=== PATIENT | female | born 1990 | race Caucasian/White ===

== ENCOUNTER 2018-04-06 07:33 | Inpatient (IN) | payer BC ==
[2018-04-06] MEDS ORDERED: IBUPROFEN 600 MG TAB PO (08:00)
[2018-04-06] MEDS ORDERED: LIDOCAINE 1% (MPF) 30 ML INJ INJ (08:00)
[2018-04-06] MEDS ORDERED: CARBOPROST 250 MCG INJ IM ×2 (08:00→21:00)
[2018-04-06] MEDS ORDERED: OXYTOCIN 30 UNITS/LR 500 ML IV ×4 (08:00→21:00)
[2018-04-06] MEDS ORDERED: MISOPROSTOL 200 MCG TAB PR ×2 (08:00→21:00)
[2018-04-06] MEDS ORDERED: BUTORPHANOL 2 MG INJ IV (08:00)
[2018-04-06] MEDS: LACTATED RINGER'S 1,000 ML IV ×3 (08:08→15:14)
[2018-04-06 09:17] LABS: ADD MAN DIFF? NO
[2018-04-06 09:21] LABS: BASOPHILS % 0.2 % (0.0-2.0); EOSINOPHILS # 0.1 10^3/ul (0.0-0.5); HEMATOCRIT 40.6 % (37.0-47.0); HEMOGLOBIN 13.4 g/dl (12.0-16.0); LYMPHOCYTES # 2.2 10^3/ul (0.8-2.9); LYMPHOCYTES % 25.1 % (15.0-51.0); MEAN CORPUSCULAR HEMOGLOBIN 30.1 pg (29.0-33.0); MEAN CORPUSCULAR VOLUME 91.2 fl (82.0-101.0); MEAN PLATELET VOLUME 11.5 fl (7.4-10.4); MONOCYTE # 0.5 10^3/ul (0.3-0.9); MONOCYTES % 5.8 % (0.0-11.0); NEUTROPHILS % 67.2 % (39.0-77.0); PLATELET COUNT 247 10^3/UL (140-415); RED BLOOD COUNT 4.45 10^6/ul (4.20-5.40); RED CELL DISTRIBUTION WIDTH 13.7 % (11.5-14.5)
[2018-04-06 09:21] LABS: WHITE BLOOD COUNT 8.9 10^3/ul (4.8-10.8)
[2018-04-06 09:40] LABS: INR 0.86; PROTIME 11.8 Sec (11.9-14.9); PT RATIO 0.9
[2018-04-06] MEDS: OXYTOCIN 30 UNITS/LR 500 ML IV ×2 (09:41→22:00)
[2018-04-06] MEDS ORDERED: FENTAnyl 2MCG/ML-ROPIV 0.2% 100 ML (10:48)
[2018-04-06] MEDS ORDERED: NALOXONE (0.4 MG/ML) INJ IV (11:00)
[2018-04-06] MEDS ORDERED: DIPHENHYDRAMINE 50 MG INJ IV (11:00)
[2018-04-06] MEDS ORDERED: ONDANSETRON 4 MG INJ IV ×2 (11:00→21:00)
[2018-04-06 11:03] LABS: HEPATITIS B SURFACE ANTIGEN NEGATIVE (NEGATIVE)
[2018-04-06] MEDS: FENTAnyl 2MCG/ML-ROPIV 0.2% 100 ML BAG EPI ×2 (15:14→20:15)
[2018-04-06 18:45] LABS: RAPID PLASMA REAGIN NONREACTIVE (NR)
[2018-04-06] MEDS ORDERED: MINERAL OIL LIGHT 10 ML VIAL (20:03)
[2018-04-06] MEDS: METHYLERGONOVINE 0.2 MG INJ IM (20:42)
[2018-04-06] MEDS ORDERED: OXYCODONE/ASPIRIN (4.88/325) TAB PO ×2 (21:00)
[2018-04-06] MEDS ORDERED: DIBUCAINE 1% 30 GM OINT TOP (21:00)
[2018-04-06] MEDS ORDERED: SENNA/DOCUSATE NA (8.6MG/50MG) TAB PO (21:00)
[2018-04-06] MEDS ORDERED: METHYLERGONOVINE 0.2 MG INJ IM (21:00)
[2018-04-06] MEDS ORDERED: NACL 0.9% 3 ML SYG IV (21:00)
[2018-04-07] MEDS: SENNA/DOCUSATE NA (8.6MG/50MG) TAB PO ×3 (00:24→21:04)
[2018-04-07] MEDS: IBUPROFEN 600 MG TAB PO ×4 (00:46→17:53)
[2018-04-07] MEDS: LANOLIN HPA 1 PKT TOP ×2 (07:04→07:05)
[2018-04-07] MEDS: BENZOCAINE 20% 56 ML SPRAY TOP (07:05)
[2018-04-07] MEDS: WITCH HAZEL/GLYCERIN PAD PR (07:05)
[2018-04-07 08:46] LABS: ADD MAN DIFF? NO
[2018-04-07 08:48] LABS: WHITE BLOOD COUNT 12.7 10^3/ul (4.8-10.8)
[2018-04-07 08:48] LABS: BASOPHILS % 0.2 % (0.0-2.0); EOSINOPHILS # 0.1 10^3/ul (0.0-0.5); EOSINOPHILS % 0.6 % (0.0-7.0); HEMATOCRIT 33.6 % (37.0-47.0); HEMOGLOBIN 11.1 g/dl (12.0-16.0); LYMPHOCYTES # 2.1 10^3/ul (0.8-2.9); LYMPHOCYTES % 16.1 % (15.0-51.0); MEAN CORPUSCULAR HEMOGLOBIN 30.3 pg (29.0-33.0); MEAN CORPUSCULAR VOLUME 91.8 fl (82.0-101.0); MEAN PLATELET VOLUME 11.4 fl (7.4-10.4); MONOCYTE # 1.1 10^3/ul (0.3-0.9); MONOCYTES % 8.7 % (0.0-11.0); NEUTROPHIL # 9.4 10^3/ul (1.6-7.5); PLATELET COUNT 215 10^3/UL (140-415); RED BLOOD COUNT 3.66 10^6/ul (4.20-5.40); RED CELL DISTRIBUTION WIDTH 13.6 % (11.5-14.5)
[2018-04-08] MEDS: IBUPROFEN 600 MG TAB PO ×3 (05:49→12:27)
[2018-04-08] MEDS: SENNA/DOCUSATE NA (8.6MG/50MG) TAB PO (09:34)
== END 2018-04-08 15:30 | disposition home or self-care (01) | DRG 806 ==
LOC: L-D 07:33 → PP1 23:25
PROVIDERS: Obstetrics & Gynecology
PROC: 10E0XZZ Delivery of Products of Conception, External Approach (ICD-10-PCS; principal; 2018-04-06 07:30)
PROC: 0UQGXZZ Repair Vagina, External Approach (ICD-10-PCS; 2018-04-06 07:30)
PROC: 3E033VJ Introduction of Other Hormone into Peripheral Vein, Percutaneous Approach (ICD-10-PCS; 2018-04-06 07:30)
DX: O48.0 Post-term pregnancy (principal); O71.4 Obstetric high vaginal laceration alone; Z37.0 Single live birth; Z3A.40 40 weeks gestation of pregnancy
CPT/HCPCS: 62319; 76815; 85025; 85610; 85730; 86592; 86850; 86900; 86901; 87340